=== PATIENT | female | born 1990 | race African-American/Black ===

== ENCOUNTER 2016-09-18 15:17 | Emergency (ER) | payer OTHER ==
[2016-09-18 15:21] VITALS: BP 132/87; PULSE 109; TEMP 98.2; BMI 29.0
--- NOTE | 2016-09-18 16:05 | PDOC ---
History of Present Illness - General Chief Complaint: Pain Stated Complaint: RT FOOT PAIN Time Seen by Provider: 09/18/16 15:30 History Source: Patient Exam Limitations: No Limitations - History of Present Illness Initial Comments: 09/18/16 15:58 hyperflexion injury to right great toe 2 days ago. States use soaks, ibuprofen but has continued to be swollen and painful. 09/18/16 16:18 09/18/16 16:40 Occurred: reports: yesterday Severity: reports: mild, moderate Pain Location: reports: lower extremity (left great toe) Modifying Factors: improves with: cold therapy Associated Symptoms (Fall): denies symptoms Past History - Travel Traveled outside of the country in the last 30 days: No Close contact w/someone who was outside of country & ill: No - Past Medical History Allergies/Adverse Reactions: Allergies Allergy/AdvReac Type Severity Reaction Status Date / Time No Known Allergies Allergy Verified 09/18/16 15:21 Home Medications: Ambulatory Orders Ibuprofen [Motrin -] 600 mg PO TID #21 tablet 09/28/14 Metaxalone [Skelaxin] 800 mg PO TID PRN #15 tablet 09/28/14 Anemia: No Asthma: No Cancer: No Cardiac Disorders: No Diabetes: No HTN: No Seizures: No Thyroid Disease: No - Reproductive History (#): 8 Para: 4 Therapeutic (s) & number: Yes (3) Tubal Ligation: No Spontaneous : 0 - Immunization History Immunization Up to Date: No - Psycho/Social/Smoking Cessation Hx Anxiety: No Suicidal Ideation: No Smoking Status: No Smoking History: Current every day smoker Have you smoked in the past 12 months: No Number of Cigarettes Smoked Daily: 7 If you are a former smoker, when did you quit?: 2 MONTHS Information on smoking cessation initiated: Yes 'Breaking Loose' booklet given: 09/18/16 Hx Alcohol Use: Yes (SOCIAL) Drug/Substance Use Hx: No Substance Use Type: Marijuana Hx Substance Use Treatment: No Review of Systems - Review of Systems Able to Perform ROS?: Yes Is the patient limited Korean proficient: Yes Constitutional: Yes: See HPI. No: Symptoms Reported, Malaise HEENTM: No: Symptoms Reported Respiratory: No: Symptoms reported Musculoskeletal: Yes: Symptoms Reported, See HPI, Joint Pain, Joint Swelling ( right great toe and midfoot ) Integumentary: Yes: Symptoms Reported All Other Systems: Reviewed and Negative *Physical Exam - Vital Signs Last Vital Signs Temp Pulse Resp BP Pulse Ox 98.2 F 109 H 20 132/87 99 09/18/16 15:18 09/18/16 15:18 09/18/16 15:18 09/18/16 15:18 09/18/16 15:18 - Physical Exam General Appearance: Yes: Nourished, Appropriately Dressed, Apparent Distress, Mild Distress HEENT: positive: KARSON, Normal ENT Inspection, TMs Normal, Pharynx Normal Neck: positive: Supple. negative: Tender Respiratory/Chest: positive: Lungs Clear, Normal Breath Sounds Extremity: positive: Normal Capillary Refill, Normal Inspection, Tender (to right great MTP/ Toe- unable to flex and extend , pain radiates up ligament into midfoot. ) Integumentary: positive: Normal Color, Dry, Warm Neurologic: positive: payable manager II-XII NML intact, Fully Oriented, Alert, Normal Mood/ Affect, Normal Response, Motor Strength 5/5 Progress Note - Progress Note Progress Note: Toe sprain, X-ray negative for fractures or dislocations, will treat with Donavan wrap and cast shoe, ibuprofen for pain relief. Follow up with Orth O as needed *DC/Admit/Observation/Transfer Diagnosis at time of Disposition: Sprain of toe, great, right Qualifiers: Encounter type: initial encounter Qualified Code(s): S93.501A - Unspecified sprain of right great toe, initial encounter - Discharge Dispostion Disposition: HOME Condition at time of disposition: Stable Admit: No - Referrals Referrals: Xavier Rogers MD [Staff Physician] - - Patient Instructions Printed Discharge Instructions: DI for Toe Sprain Additional Instructions: Rest, ice to area on and off for 15 minutes 4-6 times a day Avoid heavy lifting or exercise until pain and swelling is resolved or until further directed Keep area highly elevated to reduce swelling Use splints/Donavan wrap as directed Followup with orthopedist in one to 2 days if not improving, if significantly improved may wait one week for followup with orthopedist May use ibuprofen 2-200 mg tablets every 6 hours as needed for pain - Post Discharge Activity Work/School Note: Back to Work
[2016-09-18] MEDS ORDERED: IBUPROFEN 600 MG TABLET (FP) PO ONE ×2 (16:17→16:18)
== END 2016-09-18 16:42 | disposition home or self-care (01) ==
LOC: JERFT 15:17
DX: S93.511A Sprain of interphalangeal joint of right great toe, initial encounter (principal); X50.9XXA Other and unspecified overexertion or strenuous movements or postures, initial encounter; Y93.89 Activity, other specified; Y92.89 Other specified places as the place of occurrence of the external cause
CPT/HCPCS: 73660-TC; 84703; 99281-25

== ENCOUNTER 2018-09-13 09:24 | Emergency (ER) | payer OTHER ==
[2018-09-13 09:34] VITALS: BMI 24.2
[2018-09-13] MEDS ORDERED: morphine CARPU-JECT 4 MG/1 ML DISP.SYRIN IVPUSH ONE (10:03)
[2018-09-13] MEDS ORDERED: morphine SULFATE 4 MG/ML VIAL ONE (10:20)
--- NOTE | 2018-09-13 10:25 | PDOC ---
History of Present Illness - General Chief Complaint: Pain Stated Complaint: ABD PAIN Time Seen by Provider: 09/13/18 09:42 History Source: Patient Exam Limitations: No Limitations Past History - Past Medical History Allergies/Adverse Reactions: Allergies Allergy/AdvReac Type Severity Reaction Status Date / Time No Known Allergies Allergy Verified 09/13/18 09:30 Home Medications: Ambulatory Orders Ibuprofen [Motrin -] 600 mg PO TID #21 tablet 09/28/14 Metaxalone [Skelaxin] 800 mg PO TID PRN #15 tablet 09/28/14 Anemia: No Asthma: No Cancer: No Cardiac Disorders: No Diabetes: No HTN: No Seizures: No Thyroid Disease: No - Reproductive History (#): 8 Para: 4 Therapeutic (s) & number: Yes (3) Tubal Ligation: No Spontaneous : 0 - Immunization History Immunization Up to Date: No - Suicide/Smoking/Psychosocial Hx Smoking Status: No Smoking History: Current every day smoker Have you smoked in the past 12 months: No Number of Cigarettes Smoked Daily: 7 If you are a former smoker, when did you quit?: 2 MONTHS Information on smoking cessation initiated: No 'Breaking Loose' booklet given: 09/18/16 Hx Alcohol Use: No Drug/Substance Use Hx: No Substance Use Type: Marijuana Hx Substance Use Treatment: No *Physical Exam - Vital Signs Last Vital Signs Temp Pulse Resp BP Pulse Ox 98.3 F 84 17 149/99 100 09/13/18 09:30 09/13/18 09:30 09/13/18 09:30 09/13/18 09:30 09/13/18 09:30 - Physical Exam General Appearance: Yes: Moderate Distress (due to pain) Respiratory/Chest: positive: Lungs Clear, Normal Breath Sounds. negative: Respiratory Distress Cardiovascular: positive: Regular Rhythm, Regular Rate, S1, S2. negative: Murmur Gastrointestinal/Abdominal: positive: Tender (+RUQ and along umbilical region), Soft. negative: Distended, Guarding, Rebound, Hernia, Mass Musculoskeletal: negative: CVA Tenderness Integumentary: positive: Normal Color Neurologic: positive: Alert ED Treatment Course - LABORATORY CBC & Chemistry Diagram: 09/13/18 10:14 09/13/18 10:14 - RADIOLOGY Radiology Studies Ordered: Category Date Time Status ABDOMEN US -LIMITED [US] Stat Ultrasound 09/13/18 10:03 Ordered Medical Decision Making - Medical Decision Making 28 y/o F with no sig pmh, no prior abd surgeries, LNMP 08/22/18, presents with generalized sharp abdominal pain, more along periumbilical site, from this morning along with mild nausea. States pain was mild in nature the past 2 days, but got worse today. Denies having this type of pain before. Denies fever, sob, cp, back/flank pain, vomiting, diarrhea, constipation, urinary complaints. Last BM was yesterday. Consider cholecystitis, kidney stones, appendicitis Plan: Labs, pain control, RUQ sono 09/13/18 10:23 Pain improved with Morphine Labs reviewed and unremarkable RUQ sono shows no acute findings other than slight fatty liver Patient went for CT A/P to r/o other acute findings Pending results of CT 09/13/18 15:35 CT A/P shows no acute findings Patient given copy of CT and advised f/u with her PCP stable for dc 09/13/18 16:01 *DC/Admit/Observation/Transfer Diagnosis at time of Disposition: Abdominal pain Qualifiers: Abdominal location: periumbilical Qualified Code(s): R10.33 - Periumbilical pain - Discharge Dispostion Disposition: HOME Condition at time of disposition: Stable Decision to Admit order: No - Referrals - Patient Instructions Printed Discharge Instructions: DI for Abdominal Pain-Adult Additional Instructions: Thank you for choosing [facility]. It was a pleasure taking care of you. There were no acute findings noted on your imaging Your labwork was unremarkable Please follow-up with your regular doctor in 2 days for further evaluation Return to the Emergency Department if your symptoms worsen or persist or have other concerning symptoms. - Post Discharge Activity
[2018-09-13 10:34] LABS: EOS % 1.5 % (0-4.5); HEMATOCRIT 40.2 % (32.4-45.2); HEMOGLOBIN 13.7 GM/dL (10.7-15.3); MCH 32.2 pg (25.7-33.7); MCHC 34.1 g/dl (32.0-36.0); MEAN CELL VOLUME 94.4 fl (80-96); MEAN PLT VOLUME 9.3 fl (7.5-11.1); MONO % 9.2 % (3.8-10.2); NEUT % 40.3 % (42.8-82.8); PLATELET COUNT 249 K/MM3 (134-434); RBC 4.26 M/mm3 (3.60-5.2); RDW 12.9 % (11.6-15.6); WHITE BLOOD COUNT 5.6 K/mm3 (4.0-10.0)
[2018-09-13 10:49] LABS: ALBUMIN 3.8 g/dl (3.4-5.0); BILIRUBIN,TOTAL 0.4 mg/dL (0.2-1); BLOOD UREA NITROGEN 6.1 mg/dL (7-18); CALCIUM 9.1 mg/dL (8.5-10.1); CREATININE 0.8 mg/dL (0.55-1.3); POTASSIUM 4.2 mmol/L (3.5-5.1); TOT PROT 7.6 g/dl (6.4-8.2)
--- NOTE | 2018-09-13 11:13 | PDOC ---
*Physical Exam - Vital Signs Last Vital Signs Temp Pulse Resp BP Pulse Ox 98.3 F 84 17 149/99 100 09/13/18 09:30 09/13/18 09:30 09/13/18 09:30 09/13/18 09:30 09/13/18 09:30 ED Treatment Course - LABORATORY CBC & Chemistry Diagram: 09/13/18 10:14 09/13/18 10:14 - ADDITIONAL ORDERS Additional order review: Laboratory Results 09/13/18 09/13/18 10:14 10:14 Sodium 141 Potassium 4.2 Chloride 109 H Carbon Dioxide 25 Anion Gap 7 L BUN 6.1 L Creatinine 0.8 Est GFR (CKD-EPI)AfAm 117.93 Est GFR (CKD-EPI)NonAf 101.75 Random Glucose 86 Calcium 9.1 Total Bilirubin 0.4 AST 19 ALT 26 Alkaline Phosphatase 65 Total Protein 7.6 Albumin 3.8 Lipase 96 Serum , Qual Negative 09/13/18 10:14 RBC 4.26 MCV 94.4 MCHC 34.1 RDW 12.9 MPV 9.3 Neutrophils % 40.3 L D Lymphocytes % 48.0 H D Monocytes % 9.2 Eosinophils % 1.5 Basophils % 1.0 - Medications Given in the ED: ED Medications Discontinued Medications Generic Name Dose Route Start Last Admin Trade Name Freq PRN Reason Stop Dose Admin Morphine Sulfate 4 mg 09/13/18 10:03 09/13/18 10:24 Morphine Injection - IVPUSH 09/13/18 10:04 4 mg ONCE ONE Administration Medical Decision Making - Medical Decision Making 09/13/18 11:11 28y F presents with sharp periumbilical pain without fever/chills, n/v, urinary complaints, diarrhea. ttp in RUQ/umbilicus labs reviewed, unremarkble awaiting US to eval for cholecyttis/gall stones The patient was seen and evaluated in conjunction with SAMI Stein under my direct supervision, ancillary studies were reviewed.I agree with the plan as outlined by SAMI Stein . 09/13/18 15:14 ct and us neg for acute pathology pt feeling improved will dc with pmd fu returnp recautions were discussed *DC/Admit/Observation/Transfer Diagnosis at time of Disposition: Abdominal pain - Discharge Dispostion Disposition: HOME Condition at time of disposition: Stable - Referrals - Patient Instructions Printed Discharge Instructions: DI for Abdominal Pain-Adult Additional Instructions: Thank you for choosing [facility]. It was a pleasure taking care of you. There were no acute findings noted on your imaging Your labwork was unremarkable Please follow-up with your regular doctor in 2 days for further evaluation Return to the Emergency Department if your symptoms worsen or persist or have other concerning symptoms. - Post Discharge Activity
[2018-09-13 11:46] LABS: HCG,QUALITATIVE URINE Negative
[2018-09-13 12:43] LABS: PH,URINE 8.5 (5.0-8.0); URINE APPEARANCE CLEAR; URINE BILIRUBIN NEGATIVE (NEGATIVE); URINE COLOR YELLOW; URINE GLUCOSE (UA) NEGATIVE (NEGATIVE); URINE KETONE NEGATIVE (NEGATIVE); URINE LEUK ESTERASE NEGATIVE (NEGATIVE); URINE NITRITE NEGATIVE (NEGATIVE); URINE PROTEIN NEGATIVE (NEGATIVE); URINE UROBILINOGEN 0.2 mg/dL (0.2-1.0)
[2018-09-13 16:18] VITALS: BP 135/89; PULSE 75; TEMP 98.6
== END 2018-09-13 16:18 | disposition home or self-care (01) ==
LOC: JER 09:24
PROC: 3E033NZ Introduction of Analgesics, Hypnotics, Sedatives into Peripheral Vein, Percutaneous Approach (ICD-10-PCS; principal; 2018-09-13)
DX: R10.33 Periumbilical pain (principal)
CPT/HCPCS: 36415; 74177-TC; 76705-TC; 80053; 81003; 83690; 84703; 85025; 87086; 99282-25

== ENCOUNTER 2018-10-07 08:25 | Emergency (ER) | payer OTHER ==
[2018-10-07 08:42] VITALS: BP 143/92; PULSE 92; TEMP 98.5; BMI 25.0
[2018-10-07] MEDS ORDERED: IBUPROFEN 600 MG TABLET (FP) PO ONE ×2 (08:49→08:50)
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
== END 2018-10-07 10:00 | disposition home or self-care (01) ==
LOC: JERFT 08:25
PROC: 2W3RX1Z Immobilization of Left Lower Leg using Splint (ICD-10-PCS; principal; 2018-10-07)
DX: S89.92XA Unspecified injury of left lower leg, initial encounter (principal); F17.210 Nicotine dependence, cigarettes, uncomplicated; W18.39XA Other fall on same level, initial encounter; Y93.39 Activity, other involving climbing, rappelling and jumping off; Y92.9 Unspecified place or not applicable
CPT/HCPCS: 29515; 73562-TC-LT-FY; 99282-25

== ENCOUNTER 2019-09-22 16:53 | Emergency (ER) | payer OTHER ==
[2019-09-22 17:00] VITALS: BP 140/77; PULSE 99; TEMP 98.7; BMI 24.0
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
[2019-09-22] MEDS ORDERED: ACETAMINOPHEN 500 MG TABLET (FP) PO ONE (17:51)
[2019-09-22] MEDS ORDERED: ACETAMINOPHEN 325 MG TABLET (FP) ONE (17:51)
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
[2019-09-22] MEDS ORDERED: oxyCODONE HCL 5 MG TABLET PO ONE (19:43)
[2019-09-22] MEDS ORDERED: oxyCODONE HCL 5 MG TABLET ONE (19:45)
== END 2019-09-22 19:54 | disposition home or self-care (01) ==
LOC: JERFT 16:53
DX: S09.93XA Unspecified injury of face, initial encounter (principal); S01.81XA Laceration without foreign body of other part of head, initial encounter; S02.2XXA Fracture of nasal bones, initial encounter for closed fracture
CPT/HCPCS: 70450-TC; 70486-TC; 72125-TC; 84703; 99284-25